=== PATIENT | male | born 1955 | race Caucasian/White ===

== ENCOUNTER 2017-03-14 09:11 | Emergency (ER) | payer OTHER ==
[~2017-03-14] VITALS: Ht 170.2 cm; Wt 118.0 kg
[~2017-03-14 09:11] MED LIST: ACET325T33 PO; NADO20TA PO; PANT40TA3 PO; [UNRECOGNIZED DRUG - REMARK]; [UNRECOGNIZED DRUG - REMARK]
[2017-03-14 09:13] VITALS: Ht 170.2 cm; Wt 118.0 kg
[2017-03-14 10:23] LABS: ADD SCAN DIFF NO
[2017-03-14 10:25] LABS: ABNORMAL IP MESSAGE 1; HEMATOCRIT 35.6 % (42.0-52.0); HEMOGLOBIN 10.9 g/dl (14.0-18.0); MEAN CORPUSCULAR HEMOGLOBIN 24.8 pg (29.0-33.0); MEAN CORPUSCULAR HGB CONC 30.6 g/dl (32.0-37.0); MEAN CORPUSCULAR VOLUME 80.9 fl (82.0-101.0); RED CELL DISTRIBUTION WIDTH 17.2 % (11.5-14.5); WHITE BLOOD COUNT 7.1 10^3/ul (4.8-10.8)
[2017-03-14 10:31] LABS: PLATELET COUNT 25 10^3/UL (140-415)
--- NOTE | 2017-03-14 10:35 | RADRPT ---
PROCEDURE: Chest x-ray CLINICAL INDICATION: Cough. Chest pain. TECHNIQUE: Chest single view COMPARISON: None FINDINGS: The heart is normal in size. The pulmonary vessels are normal in caliber. There is stable calcified granuloma in the right upper lobe. Lungs otherwise clear. The costophrenic angles are sharp. The visualized bony thorax is unremarkable. IMPRESSION: No acute cardiopulmonary disease. Old granulomatous disease RPTAT: HH .Chidi Jeffrey MD, MD Date Time Electronically viewed and signed by .Chidi Jeffrey MD, MD on 03/14/2017 10:35 .W/
[2017-03-14 10:41] LABS: CHLORIDE 103 mmol/L (97-110); POTASSIUM 3.9 mmol/L (3.5-5.1); SODIUM 135 mmol/L (135-144)
[2017-03-14 10:44] LABS: ANION GAP 17 (8-16); BLOOD UREA NITROGEN 9 mg/dl (7-20); CARBON DIOXIDE 19 mmol/L (21-31); CREATININE 0.68 mg/dl (0.61-1.24)
[2017-03-14 10:45] LABS: CALCIUM 8.3 mg/dl (8.4-10.2); GLUCOSE 116 mg/dl (70-220)
[2017-03-14 10:46] LABS: INR 1.17; PARTIAL THROMBOPLASTIN TIME 28.6 Sec (25.0-35.0); PT RATIO 1.2
[2017-03-14 10:52] LABS: B-TYPE NATRIURETIC PEPTIDE 92 PG/ML (0-125)
[2017-03-14 10:56] LABS: BASOPHILS % 0.1 % (0.0-2.0); EOSINOPHILS % 0.3 % (0.0-7.0); LYMPHOCYTES # 1.3 10^3/ul (0.8-2.9); LYMPHOCYTES % 18.3 % (15.0-51.0); MEAN PLATELET VOLUME 10.2 fl (7.4-10.4); MONOCYTE # 0.5 10^3/ul (0.3-0.9); MONOCYTES % 7.4 % (0.0-11.0); NEUTROPHIL # 5.4 10^3/ul (1.6-7.5); NEUTROPHILS % 73.6 % (39.0-77.0)
[2017-03-14 11:03] LABS: TROPONIN-I < 0.012 ng/ml (0.00-0.12)
[2017-03-14 11:03] LABS: ADD SCAN DIFF NO
[2017-03-14 11:05] LABS: ABNORMAL IP MESSAGE 1; BASOPHILS % 0.1 % (0.0-2.0); EOSINOPHILS % 0.1 % (0.0-7.0); HEMATOCRIT 33.1 % (42.0-52.0); HEMOGLOBIN 10.7 g/dl (14.0-18.0); LYMPHOCYTES # 1.4 10^3/ul (0.8-2.9); LYMPHOCYTES % 18.5 % (15.0-51.0); MEAN CORPUSCULAR HEMOGLOBIN 25.1 pg (29.0-33.0); MEAN CORPUSCULAR HGB CONC 32.3 g/dl (32.0-37.0); MEAN CORPUSCULAR VOLUME 77.7 fl (82.0-101.0); MONOCYTE # 0.6 10^3/ul (0.3-0.9); MONOCYTES % 8.5 % (0.0-11.0); NEUTROPHIL # 5.3 10^3/ul (1.6-7.5); NEUTROPHILS % 72.3 % (39.0-77.0); RED BLOOD COUNT 4.26 10^6/ul (4.70-6.10); WHITE BLOOD COUNT 7.4 10^3/ul (4.8-10.8)
[2017-03-14 11:06] LABS: PLATELET COUNT 98 10^3/UL (140-415)
[2017-03-14] MEDS ORDERED: IOHEXOL 100 ML ONE (13:45)
[2017-03-14] MEDS ORDERED: SOD CHLORIDE 0.9% 100 ML ONE (13:45)
--- NOTE | 2017-03-14 14:22 | RADRPT ---
PROCEDURE: CTA Chest with contrast and with 3-D reconstructions CLINICAL INDICATION: Chest pain TECHNIQUE: The study was performed utilizing multidetector CT scanner. Direct spiral axial section s were obtained from the thoracic inlet to the upper abdomen with the use of intravenous contrast ma terial. Sagittal, coronal and 3-D reformations were obtained. The images were reviewed on a PACS wor kstation. DLP 805.88 mGycm CTDIvol 56.34, 20.03 mGy COMPARISON: CTA chest from 10/21/2013 FINDINGS: There are no pulmonary emboli. There are patchy opacities at the left greater than right lung bases posteriorly as well as in the l eft upper lobe medially on series 4, image 50 which are suspicious for a multifocal pneumonia. There is a calcified granuloma in the right upper lobe. A right hilar calcification is noted. There is n o pleural fluid. There is no pneumothorax. Heart size is within normal limits. There is no pericardial fluid. The aorta is within normal limi ts. There are no enlarged axillary or mediastinal lymph nodes. The visualized portions of the upper abdomen demonstrate a liver with a nodular contour consistent w ith cirrhosis. The spleen is enlarged, measuring up to 15.2 cm in diameter. The gallbladder is col lapsed around stones. There has been interval placement of a stent in the right lobe of the liver, possibly in the right hepatic duct. A possible anterior compression fracture of a mid thoracic vert ebra is again noted. Soft tissue structures are unremarkable. IMPRESSION: No CT evidence for pulmonary embolus. Patchy opacities at the left greater than right lung bases as well as in the left mid lung suspiciou s for a multifocal pneumonia. Follow-up to resolution is recommended. Calcified granulomas in the right lung and right lung hilum. Cholelithiasis with in a contracted gallbladder. Hepatosplenomegaly with a nodular liver contour consistent with cirrhosis. Interval placement of a stent in the right lobe of the liver, possibly in the right hepatic duct. RPTAT: EE Physician Collin Date Time Electronically viewed and signed by Bashir Espinoza Physician on 03/14/2017 14:22 RA/
[2017-03-14] MEDS ORDERED: ALBU18HF INHALATION (14:29)
[2017-03-14] MEDS ORDERED: AZIT250T94 PO (14:29)
[2017-03-14 14:53] LABS: CREATINE KINASE 117 IU/L (23-200)
[2017-03-14 15:00] VITALS: BP 139/70; PULSE 91; RESP 18; TEMP 99.2
--- NOTE | 2017-03-14 15:22 | ERD ---
ER Documentation Chief Complaint Date/Time DATE: 03/14/17 TIME: 15:17 Chief Complaint COUGH X 1 MOS HPI This patient is a 61-year-old male with history of hepatitis presenting to the emergency department for cough ongoing for the past month. Patient states the cough is worsened over the past week. Additionally the patient has had shortness of breath on exertion. The patient denies chest pain, urinary symptoms, fevers, chills, or other symptoms. The patient has taken no medications for relief of his symptoms. ROS All systems reviewed and are negative except as per history of present illness. Medications Home Meds Active Scripts Albuterol Sulfate* (Ventolin HFA*) 18 Gm Hfa.aer.ad, 2 PUFF INHALATION Q4H, #1 INHALER Prov:MOY PENA PA-C 03/14/17 Azithromycin* (Zithromax*) 250 Mg Tablet, 250 MG PO .ZPACK DIRECTED, #6 TAB TAKE 500 MG (2 TABS) THE FIRST DAY THEN 250 MG (1 TAB) DAYS 2-5 Prov:MOY PENA PA-C 03/14/17 Reported Medications Acetaminophen* (Tylenol*) 325 Mg Tablet, 650 MG PO Q4 Y 12/14/13 Nadolol (Nadolol) 20 Mg Tablet, 20 MG PO DAILY 12/14/13 Pantoprazole* (Protonix*) 40 Mg Tablet.dr, 40 MG PO BID 12/14/13 Allergies Allergies: Coded Allergies: No Known Allergy (Verified , 03/14/17) PMhx/Soc History of Surgery: Yes Anesthesia Reaction: No Hx Neurological Disorder: No Hx Respiratory Disorders: No Hx Cardiac Disorders: No Hx Psychiatric Problems: No Hx Miscellaneous Medical Probl: Yes (ULCER) Hx Alcohol Use: No Hx Substance Use: No Hx Tobacco Use: No Smoking Status: Never smoker FmHx Noncontributory for chief complaint Physical Exam Vitals Vital Signs Date Time Temp Pulse Resp B/P Pulse Ox O2 Delivery O2 Flow Rate FiO2 03/14/17 15:00 99.2 91 18 139/70 99 03/14/17 09:13 98.1 99 18 140/65 99 Physical Exam Const: The patient is resting comfortably in no acute distress. Head: Atraumatic Eyes: Normal Conjunctiva ENT: Normal External Ears, Nose and Mouth. Neck: Full range of motion..~ No meningismus. Resp: Shallow inspiratory effort. Crackles auscultated in the left lower lung base. No wheezing. Cardio: Regular rate and rhythm, no murmurs Abd: Soft, non tender, non distended. Normal bowel sounds Skin: No petechiae or rashes Back: No midline or flank tenderness Ext: No cyanosis, or edema Neur: Awake and alert Psych: Normal Mood and Affect Result Diagram: 03/14/17 1045 03/14/17 1015 Results 24 hrs Laboratory Tests Test 03/14/17 10:15 03/14/17 10:45 03/14/17 14:00 03/14/17 14:30 Prothrombin Time 15.0Sec Prothrombin Time Ratio 1.2 INR International Normalized Ratio 1.17 Activated Partial Thromboplast Time 28.6Sec Sodium Level 135mmol/L Potassium Level 3.9mmol/L Chloride Level 103mmol/L Carbon Dioxide Level 19mmol/L Anion Gap 17 Blood Urea Nitrogen 9mg/dl Creatinine 0.68mg/dl Glucose Level 116mg/dl Calcium Level 8.3mg/dl Troponin I < 0.012ng/ml < 0.012ng/ml B-Type Natriuretic Peptide 92PG/ML White Blood Count 7.410^3/ul Red Blood Count 4.2610^6/ul Hemoglobin 10.7g/dl Hematocrit 33.1% Mean Corpuscular Volume 77.7fl Mean Corpuscular Hemoglobin 25.1pg Mean Corpuscular Hemoglobin Concent 32.3g/dl Red Cell Distribution Width 17.0% Platelet Count 9810^3/UL Mean Platelet Volume fl Neutrophils % 72.3% Lymphocytes % 18.5% Monocytes % 8.5% Eosinophils % 0.1% Basophils % 0.1% Nucleated Red Blood Cells % 0.0/100WBC Neutrophils # 5.310^3/ul Lymphocytes # 1.410^3/ul Monocytes # 0.610^3/ul Eosinophils # 0.010^3/ul Basophils # 0.010^3/ul Nucleated Red Blood Cells # 0.010^3/ul Creatine Kinase 117IU/L Creatine Kinase Index 0.6 Creatinine Kinase MB (Mass) 0.70ng/ml Aspartate Amino Transf (AST/SGOT) 72IU/L Alanine Aminotransferase (ALT/SGPT) 39IU/L Current Medications Medications (Trade) Dose Ordered Sig/Marjorie Route PRN Reason Start Time Stop Time Status Last Admin Dose Admin IV Flush 10 ml 10 ml STK-MED ONCE .ROUTE 03/14/17 13:45 03/14/17 13:46 DC 03/14/17 14:02 Sodium Chloride 100 ml @ ud STK-MED ONCE .ROUTE 03/14/17 13:45 03/14/17 13:46 DC 03/14/17 14:03 Iohexol (Omnipaque) 100 ml @ ud STK-MED ONCE .ROUTE 03/14/17 13:45 03/14/17 13:46 DC 03/14/17 14:03 Procedures/MDM EMERGENCY DEPARTMENT COURSE / MEDICAL DECISION MAKING: This is a 61-year-old male who comes to the emergency room secondary to complaints of cough and shortness of breath. EKG: Interpreted by ED physician Rate/Rhythm: Sinus tachycardia with a rate of 102 bpm. QRS, ST, T-waves: No changes consistent w/ acute ischemia Impression: No evidence of ischemia or arrhythmia Lab results reviewed and showed low platelets but not significant. Liver enzymes slightly elevated at 92, but not significant. These lab values are consistent with the patient's history of hepatitis. There were no other significant acute abnormalities. This case was discussed with Dr. Parvin Schulte, who agreed with the ED course. Radiology: PROCEDURE: Chest x-ray CLINICAL INDICATION: Cough. Chest pain. TECHNIQUE: Chest single view COMPARISON: None FINDINGS: The heart is normal in size. The pulmonary vessels are normal in caliber. There is stable calcified granuloma in the right upper lobe. Lungs otherwise clear. The costophrenic angles are sharp. The visualized bony thorax is unremarkable. IMPRESSION: No acute cardiopulmonary disease. Old granulomatous disease RPTAT: HH .Chidi Jeffrey MD, Date Time Electronically viewed and signed by .Chidi Jeffrey MD, on 03/14/2017 10:35 .W/ CC: PENA,MOY J PA-C PROCEDURE: CTA Chest with contrast and with 3-D reconstructions CLINICAL INDICATION: Chest pain TECHNIQUE: The study was performed utilizing multidetector CT scanner. Direct spiral axial sections were obtained from the thoracic inlet to the upper abdomen with the use of intravenous contrast material. Sagittal, coronal and 3- D reformations were obtained. The images were reviewed on a PACS workstation. DLP 805.88 mGycm CTDIvol 56.34, 20.03 mGy COMPARISON: CTA chest from 10/21/2013 FINDINGS: There are no pulmonary emboli. There are patchy opacities at the left greater than right lung bases posteriorly as well as in the left upper lobe medially on series 4, image 50 which are suspicious for a multifocal pneumonia. There is a calcified granuloma in the right upper lobe. A right hilar calcification is noted. There is no pleural fluid. There is no pneumothorax. Heart size is within normal limits. There is no pericardial fluid. The aorta is within normal limits. There are no enlarged axillary or mediastinal lymph nodes. The visualized portions of the upper abdomen demonstrate a liver with a nodular contour consistent with cirrhosis. The spleen is enlarged, measuring up to 15.2 cm in diameter. The gallbladder is collapsed around stones. There has been interval placement of a stent in the right lobe of the liver, possibly in the right hepatic duct. A possible anterior compression fracture of a mid thoracic vertebra is again noted. Soft tissue structures are unremarkable. IMPRESSION: No CT evidence for pulmonary embolus. Patchy opacities at the left greater than right lung bases as well as in the left mid lung suspicious for a multifocal pneumonia. Follow-up to resolution is recommended. Calcified granulomas in the right lung and right lung hilum. Cholelithiasis with in a contracted gallbladder. Hepatosplenomegaly with a nodular liver contour consistent with cirrhosis. Interval placement of a stent in the right lobe of the liver, possibly in the right hepatic duct. RPTAT: EE Bashir Espinoza Physician Date Time Electronically viewed and signed by Bashir Espinoza Physician on 03/14/2017 14:22 RA/ CC: PARVIN SCHULTE MD The primary diagnosis is pneumonia. Secondary diagnosis is shortness of breath I have low suspicion for pneumothorax, pulmonary embolism, septicemia, platelet level requiring further intervention or other emergent conditions at this time. Discharge: I have discussed the lab results and diagnostic findings with the patient and answered any questions or concerns. The patient was advised to follow-up with intelligence research specialist. The patient was discharged with a prescription for azithromycin and Ventolin inhaler. The patient was advised to followup with their PMD in 1-2 days and to return to the Emergency Department if there are any new or worsening symptoms. The patient understood and agreed with the diagnosis, treatment and plan. The patient is stable for discharge at this time. Departure Diagnosis: Primary Impression: Pneumonia Pneumonia type: due to unspecified organism Laterality: bilateral Lung location: unspecified part of lung Qualified Code: J18.9 - Pneumonia of both lungs due to infectious organism, unspecified part of lung Additional Impression: Shortness of breath Condition: Fair Patient Instructions: Coping with Shortness of Breath: Controlling Stress, Cough, Chronic, Uncertain Cause, (Adult), Pneumonia (Adult) Referrals: PLACIDO MAX MD, CHEONG W MD [facility], [facility] () Usted se hays hecho un examen mdico de control que le indica que no est en juliocesar condicin que requiera tratamiento urgente en el Departamento de Emergencia. Un estudio ms profundo y el tratamiento de fuentes condicin pueden esperar sin ningn riesgo hasta que usted sea atendida/o en el consultorio de fuentes mdico o juliocesar cl yolanda. Es responsabilidad suya arreglar juliocesar waldemar para el seguimiento del sarah beth. MANEJO DE CONDICIONES NO URGENTES EN EL FUTURO 1) Si usted tiene un mdico de atencin primaria: Usted debera llamar a fuentes mdico de atencin primaria antes de venir al departamento de emergencia. Despus de las horas de consultorio, fuentes doctor o fuentes asociado/a est disponible por telfono. El mdico o enfermero de phil en el servicio telefnico puede asesorarle por andrea medio para atender el problema, o sarah beth contrario se puede programar juliocesar waldemar. 2) Si usted no tiene un mdico de atencin primaria: Llame al mdico o clnica de referencia que aparece abajo mitesh las horas de consultorio para hacer juliocesar waldemar para que le vean. CLINICAS: [facility] [phone] [facility] [phone] [facility] [phone] [facility] [phone] [facility] [phone] [address] [facility] [phone] [address] Additional Instructions: No mas mejor en 2-3 sanchez, regresar. Mas peor en 24 horas, regresear rapidamente. Ir a doctor primario in 5-7 sanchez. Usar instrucciones cuando rigoberto medicamento. MOY PENA PA-C Mar 14, 2017 15:22
[2017-03-14 15:26] LABS: TROPONIN-I < 0.012 ng/ml (0.00-0.12)
[2017-03-14 15:36] LABS: ALANINE AMINOTRANSFERASE 39 IU/L (13-69); ASPARTATE AMINO TRANSFERASE 72 IU/L (15-46)
== END 2017-03-14 15:00 | disposition home or self-care (01) ==
LOC: FTE 09:11
DX: J18.9 Pneumonia, unspecified organism (principal); R06.02 Shortness of breath
CPT/HCPCS: 71010; 71275; 80048; 82550; 82553; 83880; 84450; 84460; 84484; 85025; 85610; 85730; 93005; Q9967; Z7610; 36415

== ENCOUNTER 2019-09-19 10:25 | Inpatient (IN) | payer OTHER ==
[~2019-09-19] VITALS: Ht 172.7 cm; Wt 120.2 kg
[~2019-09-19 10:25] MED LIST changes: +ALBU18HF INHALATION; +AZIT250T PO; +CODE5LIQ2 PO; +DICL100G33 SUBD; +FURO20TA3 ORAL; +IBUP800T48 PO; +LACT20SO2 PO; +OXYC-481 PO; +PANT40TA4 PO; +PROP10TA6 ORAL; +RIFA550T4 PO; +SPIR50TA4 ORAL; +TRAM50TA2 ORAL; -[UNRECOGNIZED DRUG - REMARK]; -[UNRECOGNIZED DRUG - REMARK]
[2019-09-19 10:36] VITALS: Ht 172.7 cm; Wt 120.2 kg
[2019-09-19] MEDS ORDERED: morphine 4 MG/ML VIAL IV STA (11:24)
[2019-09-19] MEDS ORDERED: ONDANSETRON 4 MG INJ IV STA (11:24)
[2019-09-19] MEDS ORDERED: ONDANSETRON 4 MG INJ IV PRN ×2 (14:30→15:30)
[2019-09-19] MEDS ORDERED: ACETAMINOPHEN 325 MG TAB PO PRN (14:30)
[2019-09-19] MEDS ORDERED: NACL 0.9% 3 ML SYG IV SCH (15:30)
[2019-09-19] MEDS ORDERED: SOD CHLORIDE 0.9% 100 ML ONE (15:47)
[2019-09-19] MEDS ORDERED: IOHEXOL 350MG/ML 50 ML BTL ONE (15:47)
[2019-09-19] MEDS ORDERED: IOHEXOL 100 ML ONE (15:47)
[2019-09-19] MEDS: SUCRALFATE (100 MG/ML) 10ML CUP PO SCH ×2 (17:00→20:46)
[2019-09-19 18:20] VITALS: BP 142/69; PULSE 77; RESP 18
[2019-09-19] MEDS: morphine 2 MG INJ IV PRN ×2 (18:48→23:35)
[2019-09-19] MEDS ORDERED: PROPRANOLOL 10 MG TAB ONE (19:56)
[2019-09-19 20:00] VITALS: BP 136/65; PULSE 76; RESP 19
[2019-09-19] MEDS: PROPRANOLOL 10 MG TAB PO SCH (20:46)
[2019-09-20 02:00] VITALS: BP 117/59; PULSE 70; RESP 19
[2019-09-20] MEDS: PANTOPRAZOLE 40 MG INJ IV SCH ×3 (05:43→20:32)
[2019-09-20] MEDS: morphine 2 MG INJ IV PRN ×3 (05:43→20:35)
[2019-09-20] MEDS ORDERED: PANTOPRAZOLE 40 MG INJ IV SCH (06:00)
[2019-09-20] MEDS: HYDROCODONE/APAP (5/325) TAB PO PRN (07:37)
[2019-09-20 08:00] VITALS: BP 114/59; PULSE 74; RESP 18
[2019-09-20] MEDS: PROPRANOLOL 10 MG TAB PO SCH ×2 (08:55→20:32)
[2019-09-20] MEDS: SPIRONOLACTONE 50 MG TAB PO SCH (08:55)
[2019-09-20] MEDS: SUCRALFATE (100 MG/ML) 10ML CUP PO SCH ×4 (08:55→20:37)
[2019-09-20] MEDS: FUROSEMIDE 20 MG TAB PO SCH (08:56)
[2019-09-20 14:00] VITALS: BP 131/62; PULSE 71; RESP 18
[2019-09-20] MEDS ORDERED: LIDOCAINE 1% (MPF) 5 ML VIAL ONE (14:24)
[2019-09-20] MEDS ORDERED: IOHEXOL 300MG/ML 150 ML BTL ONE (14:26)
[2019-09-20] MEDS ORDERED: MIDAZOLAM 1 MG/ML 2 ML INJ ONE (14:56)
[2019-09-20] MEDS ORDERED: FENTAnyl 50 MCG/ML VIAL ONE (14:56)
[2019-09-20 20:00] VITALS: BP 123/61; PULSE 81; RESP 17
[2019-09-20] MEDS: RIFAXIMIN 550 MG TAB PO SCH (20:32)
[2019-09-21] MEDS: morphine 2 MG INJ IV PRN ×3 (01:35→22:09)
[2019-09-21 02:00] VITALS: BP 109/53; PULSE 75; RESP 17
[2019-09-21 08:00] VITALS: BP 121/60; PULSE 76; RESP 18
[2019-09-21] MEDS: PANTOPRAZOLE 40 MG INJ IV SCH ×2 (09:03→22:12)
[2019-09-21] MEDS: SUCRALFATE (100 MG/ML) 10ML CUP PO SCH ×4 (09:03→22:13)
[2019-09-21] MEDS: RIFAXIMIN 550 MG TAB PO SCH ×2 (09:03→22:12)
[2019-09-21] MEDS: LACTULOSE 30ML CUP PO SCH (09:03)
[2019-09-21] MEDS: FUROSEMIDE 20 MG TAB PO SCH (09:04)
[2019-09-21] MEDS: SPIRONOLACTONE 50 MG TAB PO SCH (09:04)
[2019-09-21] MEDS: PROPRANOLOL 10 MG TAB PO SCH ×2 (09:04→22:13)
[2019-09-21] MEDS ORDERED: LIDOCAINE/MYLANTA 40 ML BTL PO ONE (11:00)
[2019-09-21] MEDS: SOD FERRIC GLUC COMPLX 125 MG in SOD CHLORIDE 0.9% 100 ML IVPB SCH (13:06)
[2019-09-21 14:00] VITALS: BP 106/52; PULSE 84; RESP 18
[2019-09-21 19:52] VITALS: BP 107/50; PULSE 72; RESP 17
[2019-09-22 01:49] VITALS: BP 87/42; PULSE 73; RESP 18
[2019-09-22 02:30] VITALS: BP 111/56; PULSE 72
[2019-09-22] MEDS: morphine 2 MG INJ IV PRN ×3 (06:36→18:18)
[2019-09-22 09:12] VITALS: BP 107/54; PULSE 68; RESP 17
[2019-09-22] MEDS: LACTULOSE 30ML CUP PO SCH (09:45)
[2019-09-22] MEDS: FUROSEMIDE 20 MG TAB PO SCH (09:45)
[2019-09-22] MEDS: RIFAXIMIN 550 MG TAB PO SCH ×2 (09:46→21:07)
[2019-09-22] MEDS: PROPRANOLOL 10 MG TAB PO SCH ×2 (09:46→21:07)
[2019-09-22] MEDS: PANTOPRAZOLE 40 MG INJ IV SCH ×2 (09:46→21:07)
[2019-09-22] MEDS: SPIRONOLACTONE 50 MG TAB PO SCH (09:46)
[2019-09-22] MEDS: SUCRALFATE (100 MG/ML) 10ML CUP PO SCH ×4 (09:47→21:07)
[2019-09-22] MEDS: SOD FERRIC GLUC COMPLX 125 MG in SOD CHLORIDE 0.9% 100 ML IVPB SCH (14:00)
[2019-09-22 14:35] VITALS: BP 117/58; PULSE 74; RESP 18
[2019-09-22 20:45] VITALS: BP 109/54; PULSE 76; RESP 20
[2019-09-22] MEDS: ACETAMINOPHEN 325 MG TAB PO PRN (21:07)
[2019-09-23] MEDS: morphine 2 MG INJ IV PRN ×4 (00:54→21:27)
[2019-09-23 02:38] VITALS: BP 116/55; PULSE 69; RESP 19
[2019-09-23 08:56] VITALS: BP 110/58; PULSE 74; RESP 18
[2019-09-23] MEDS: RIFAXIMIN 550 MG TAB PO SCH ×2 (09:04→21:22)
[2019-09-23] MEDS: PANTOPRAZOLE 40 MG INJ IV SCH ×2 (09:04→21:22)
[2019-09-23] MEDS: PROPRANOLOL 10 MG TAB PO SCH ×2 (09:05→21:23)
[2019-09-23] MEDS: LACTULOSE 30ML CUP PO SCH (09:05)
[2019-09-23] MEDS: SUCRALFATE (100 MG/ML) 10ML CUP PO SCH ×4 (09:05→21:22)
[2019-09-23] MEDS: SPIRONOLACTONE 50 MG TAB PO SCH (09:06)
[2019-09-23] MEDS: FUROSEMIDE 20 MG TAB PO SCH (09:06)
[2019-09-23] MEDS: SOD FERRIC GLUC COMPLX 125 MG in SOD CHLORIDE 0.9% 100 ML IVPB SCH (13:03)
[2019-09-23] MEDS ORDERED: DEXTROSE 5%-0.45% NACL 1,000 ML IV SCH (14:00)
[2019-09-23 15:08] VITALS: BP 112/60; PULSE 70; RESP 18
[2019-09-23 20:00] VITALS: BP 108/51; PULSE 72; RESP 18
[2019-09-24] VITALS (13 sets, daily range): BP systolic 87–136; BP diastolic 35–67; PULSE 62–76; RESP 16–20
[2019-09-24] MEDS: DEXTROSE 5%-0.45% NACL 1,000 ML IV SCH ×2 (01:09→10:00)
[2019-09-24] MEDS: HYDROCODONE/APAP (5/325) TAB PO PRN (01:11)
[2019-09-24] MEDS ORDERED: IOHEXOL 300MG/ML 150 ML BTL ONE (07:58)
[2019-09-24] MEDS ORDERED: SOD CHLORIDE 0.9% 100 ML ONE (07:58)
[2019-09-24] MEDS: morphine 2 MG INJ IV PRN ×2 (09:03→18:05)
[2019-09-24] MEDS: PANTOPRAZOLE 40 MG INJ IV SCH (09:07)
[2019-09-24] MEDS: PROPRANOLOL 10 MG TAB PO SCH ×2 (09:09→20:51)
[2019-09-24] MEDS: SPIRONOLACTONE 50 MG TAB PO SCH (09:09)
[2019-09-24] MEDS: RIFAXIMIN 550 MG TAB PO SCH ×2 (09:09→20:51)
[2019-09-24] MEDS: SUCRALFATE (100 MG/ML) 10ML CUP PO SCH ×4 (09:09→20:51)
[2019-09-24] MEDS: LACTULOSE 30ML CUP PO SCH (09:09)
[2019-09-24] MEDS: FUROSEMIDE 20 MG TAB PO SCH (10:19)
[2019-09-24] MEDS ORDERED: LIDOCAINE 2% (SDV) 5 ML INJ ONE (13:40)
[2019-09-24] MEDS ORDERED: PROPOFOL 40 ML ONE (13:40)
[2019-09-24] MEDS ORDERED: PROPOFOL 200 MG INJ ONE (13:40)
[2019-09-24] MEDS ORDERED: FENTAnyl 50 MCG/ML VIAL ONE (13:40)
[2019-09-24] MEDS: PANTOPRAZOLE (EC) 40 MG TAB PO SCH (18:10)
[2019-09-25] MEDS: morphine 2 MG INJ IV PRN ×2 (00:01→07:53)
[2019-09-25] MEDS: ACETAMINOPHEN 325 MG TAB PO PRN (01:50)
[2019-09-25 02:00] VITALS: BP 110/57; PULSE 75; RESP 18
[2019-09-25] MEDS: GUAIFENESIN/DM 5ML CUP PO PRN ×3 (02:51→11:49)
[2019-09-25] MEDS: PANTOPRAZOLE (EC) 40 MG TAB PO SCH ×2 (05:42→18:18)
[2019-09-25 08:27] VITALS: BP 109/52; PULSE 67; RESP 17
[2019-09-25] MEDS: FUROSEMIDE 20 MG TAB PO SCH (09:02)
[2019-09-25] MEDS: SUCRALFATE (100 MG/ML) 10ML CUP PO SCH ×4 (09:02→20:16)
[2019-09-25] MEDS: SPIRONOLACTONE 50 MG TAB PO SCH (09:02)
[2019-09-25] MEDS: RIFAXIMIN 550 MG TAB PO SCH ×2 (09:02→20:16)
[2019-09-25] MEDS: PROPRANOLOL 10 MG TAB PO SCH ×3 (09:02→20:16)
[2019-09-25] MEDS: LACTULOSE 30ML CUP PO SCH (09:03)
[2019-09-25 13:28] VITALS: BP 121/56; PULSE 67
[2019-09-25 15:05] VITALS: BP 119/58; PULSE 62; RESP 18
[2019-09-25 20:00] VITALS: BP 120/58; PULSE 70; RESP 19
[2019-09-25] MEDS ORDERED: BENZONATATE 100 MG CAP PO ONE (23:00)
[2019-09-26] MEDS: ACETAMINOPHEN 325 MG TAB PO PRN (01:55)
[2019-09-26 02:00] VITALS: BP 102/55; PULSE 71; RESP 18
[2019-09-26] MEDS ORDERED: VANCOMYCIN IV PER PHARMACY XX SCH (03:30)
[2019-09-26] MEDS: CEFEPIME 1GM/50 ML (PMX) 50 ML IVPB SCH ×3 (04:08→20:43)
[2019-09-26] MEDS: VANCOMYCIN 1 GM 250 ML IVPB SCH ×2 (04:56→06:59)
[2019-09-26] MEDS: PANTOPRAZOLE (EC) 40 MG TAB PO SCH ×2 (05:00→17:00)
[2019-09-26 08:00] VITALS: BP 118/56; PULSE 84; RESP 20
[2019-09-26] MEDS: PROPRANOLOL 10 MG TAB PO SCH ×3 (09:00→20:43)
[2019-09-26] MEDS: RIFAXIMIN 550 MG TAB PO SCH ×2 (09:00→20:43)
[2019-09-26] MEDS: LACTULOSE 30ML CUP PO SCH (09:00)
[2019-09-26] MEDS: SPIRONOLACTONE 50 MG TAB PO SCH (09:00)
[2019-09-26] MEDS: SUCRALFATE (100 MG/ML) 10ML CUP PO SCH ×4 (09:00→20:43)
[2019-09-26] MEDS: FUROSEMIDE 20 MG TAB PO SCH (09:00)
[2019-09-26] MEDS ORDERED: FENTAnyl 50 MCG/ML VIAL ONE (14:27)
[2019-09-26] MEDS ORDERED: MIDAZOLAM 1 MG/ML 2 ML INJ ONE (14:27)
[2019-09-26] MEDS ORDERED: LIDOCAINE 1% (MDV) 20 ML INJ ONE (14:32)
[2019-09-26] MEDS ORDERED: GELATIN POWDER 1 GM KIT TOP ONE (15:30)
[2019-09-26] MEDS ORDERED: GELATIN 12MM X 7 MM SPONGE TOP ONE (16:00)
[2019-09-26] MEDS: VANCOMYCIN 1.5 GM/NS 250 ML 250 ML IVPB SCH (16:58)
[2019-09-26 20:00] VITALS: BP 113/53; PULSE 74; RESP 19
[2019-09-26] MEDS: HYDROCODONE/APAP (5/325) TAB PO PRN (20:42)
[2019-09-27 02:00] VITALS: BP 112/51; PULSE 75; RESP 19
[2019-09-27] MEDS: VANCOMYCIN 1.5 GM/NS 250 ML 250 ML IVPB SCH ×2 (05:07→17:53)
[2019-09-27] MEDS: PANTOPRAZOLE (EC) 40 MG TAB PO SCH ×2 (05:08→17:53)
[2019-09-27 08:00] VITALS: BP 103/50; PULSE 84; RESP 20
[2019-09-27] MEDS: LACTULOSE 30ML CUP PO SCH (08:17)
[2019-09-27] MEDS: SUCRALFATE (100 MG/ML) 10ML CUP PO SCH ×4 (08:17→20:46)
[2019-09-27] MEDS: RIFAXIMIN 550 MG TAB PO SCH ×2 (08:17→20:46)
[2019-09-27] MEDS: SPIRONOLACTONE 50 MG TAB PO SCH (08:17)
[2019-09-27] MEDS: FUROSEMIDE 20 MG TAB PO SCH (08:18)
[2019-09-27] MEDS: PROPRANOLOL 10 MG TAB PO SCH ×4 (08:18→20:50)
[2019-09-27] MEDS: CEFEPIME 1GM/50 ML (PMX) 50 ML IVPB SCH ×2 (08:24→23:09)
[2019-09-27] MEDS: GUAIFENESIN/DM 5ML CUP PO PRN ×2 (09:10→17:55)
[2019-09-27] MEDS: morphine 2 MG INJ IV PRN (09:49)
[2019-09-27 14:00] VITALS: BP 110/62; PULSE 76; RESP 18
[2019-09-27 20:05] VITALS: BP 108/53; PULSE 73; RESP 18
[2019-09-28] VITALS: BP 108/54; PULSE 76; RESP 17
[2019-09-28] MEDS ORDERED: VANCOMYCIN 1.25 GM/NS 250 ML 250 ML IVPB SCH (02:00)
[2019-09-28] MEDS: PANTOPRAZOLE (EC) 40 MG TAB PO SCH ×2 (06:12→17:34)
[2019-09-28] MEDS: traMADol 50 MG TAB PO PRN (06:14)
[2019-09-28 08:24] VITALS: BP 119/58; PULSE 84; RESP 18
[2019-09-28] MEDS: RIFAXIMIN 550 MG TAB PO SCH ×2 (09:01→21:01)
[2019-09-28] MEDS: SPIRONOLACTONE 50 MG TAB PO SCH (09:01)
[2019-09-28] MEDS: SUCRALFATE (100 MG/ML) 10ML CUP PO SCH ×4 (09:01→21:01)
[2019-09-28] MEDS: PROPRANOLOL 10 MG TAB PO SCH ×2 (09:03→14:31)
[2019-09-28] MEDS: LACTULOSE 30ML CUP PO SCH (09:05)
[2019-09-28 14:35] VITALS: BP 123/57; PULSE 67; RESP 19
[2019-09-28 20:00] VITALS: BP 113/55; PULSE 71; RESP 19
[2019-09-28] MEDS: GUAIFENESIN/DM 5ML CUP PO PRN (21:01)
[2019-09-29] MEDS: PROPRANOLOL 10 MG TAB PO SCH ×4 (00:08→20:29)
[2019-09-29] MEDS: GUAIFENESIN/DM 5ML CUP PO PRN ×2 (01:43→06:00)
[2019-09-29 01:46] VITALS: BP 102/50; PULSE 70; RESP 16
[2019-09-29] MEDS: PANTOPRAZOLE (EC) 40 MG TAB PO SCH ×2 (06:00→18:28)
[2019-09-29 07:30] VITALS: BP 117/58; PULSE 69; RESP 16
[2019-09-29] MEDS: LACTULOSE 30ML CUP PO SCH (08:43)
[2019-09-29] MEDS: RIFAXIMIN 550 MG TAB PO SCH ×2 (08:44→20:28)
[2019-09-29] MEDS: SPIRONOLACTONE 50 MG TAB PO SCH (08:44)
[2019-09-29] MEDS: SUCRALFATE (100 MG/ML) 10ML CUP PO SCH (08:44)
[2019-09-29] MEDS ORDERED: ALBUTEROL 0.083% (NEB) 2.5 MG/3 ML AMP HHN PRN (10:00)
[2019-09-29] MEDS: GUAIFENESIN LA 600 MG TABSR PO SCH ×2 (10:17→20:28)
[2019-09-29 13:16] VITALS: BP 118/57; PULSE 68; RESP 18
[2019-09-29 20:00] VITALS: BP 120/59; PULSE 73; RESP 17
[2019-09-29] MEDS: oxyCODONE 5 MG TAB PO PRN (23:01)
[2019-09-30 02:00] VITALS: BP 99/43; PULSE 66; RESP 17
[2019-09-30] MEDS: GUAIFENESIN/CODEINE 5ML CUP PO PRN ×2 (06:11→10:11)
[2019-09-30] MEDS: PANTOPRAZOLE (EC) 40 MG TAB PO SCH (06:11)
[2019-09-30 07:25] VITALS: BP 124/60; PULSE 70; RESP 18
[2019-09-30] MEDS: oxyCODONE 5 MG TAB PO PRN (07:49)
[2019-09-30] MEDS: LACTULOSE 30ML CUP PO SCH (07:55)
[2019-09-30] MEDS: RIFAXIMIN 550 MG TAB PO SCH (07:55)
[2019-09-30] MEDS: PROPRANOLOL 10 MG TAB PO SCH (07:55)
[2019-09-30] MEDS: GUAIFENESIN LA 600 MG TABSR PO SCH (07:55)
[2019-09-30] MEDS ORDERED: SPIRONOLACTONE 50 MG TAB PO SCH (09:00)
[2019-09-30] MEDS: traMADol 50 MG TAB PO PRN (09:32)
== END 2019-09-30 12:30 | disposition home or self-care (01) | DRG 436 ==
LOC: E/R 10:25 → 5EC 14:16 → SUATTDRO 14:59
PROVIDERS: ADMIT Internal Medicine; ATTEND Internal Medicine
PROC: 0FB13ZX Excision of Right Lobe Liver, Percutaneous Approach, Diagnostic (ICD-10-PCS; principal; 2019-09-20)
PROC: 0DJ08ZZ Inspection of Upper Intestinal Tract, Via Natural or Artificial Opening Endoscopic (ICD-10-PCS; 2019-09-24)
DX: C22.0 Liver cell carcinoma (principal); C79.9 Secondary malignant neoplasm of unspecified site; D68.9 Coagulation defect, unspecified; I85.00 Esophageal varices without bleeding; K76.6 Portal hypertension; E87.1 Hypo-osmolality and hyponatremia; K70.30 Alcoholic cirrhosis of liver without ascites; R59.0 Localized enlarged lymph nodes; D50.9 Iron deficiency anemia, unspecified; I70.0 Atherosclerosis of aorta; D69.6 Thrombocytopenia, unspecified; I86.4 Gastric varices; K31.89 Other diseases of stomach and duodenum; K21.9 Gastro-esophageal reflux disease without esophagitis; D63.8 Anemia in other chronic diseases classified elsewhere; K80.20 Calculus of gallbladder without cholecystitis without obstruction
CPT/HCPCS: 36415; 71045; 71260; 74176; 74178; 76705; 77012; 80048; 80053; 80061; 80069; 80202; 81003; 82105; 82378; 83036; 83540; 83690; 83735; 84100; 84443; 84484; 85025; 85610; 85730; 86301; 87338; 88307; 88313; 88341; 88342; 93005; 96374; 96375; C9113; J0692; J2250; J2270; J2405; J2916; J3010; J3370; J7042; Q9967